=== PATIENT | female | born 1965 | race Caucasian/White ===

== ENCOUNTER 2023-01-26 18:45 | Emergency (ER) | payer OTHER, SELFPAY ==
[2023-01-26 18:47] VITALS: BP 159/72; PULSE 69; RESP 16; TEMP 36.8; O2SAT 99; BMI 22.3
--- NOTE | 2023-01-26 18:53 | PC.NURSE ---
Laceration to thumb was assessed, wrapped in gauze and coban. Bleeding controlled at this time. Pt educated on estimated wait times.
--- NOTE | 2023-01-26 20:30 | XR_ITS ---
PROCEDURE INFORMATION: Exam: XR Left Hand Exam date and time: 01/26/2023 8:28 PM Age: 58 years old Clinical indication: Injury or trauma; Other: Laceration; Finger; Left; Thumb; Additional info: Left distal thumb lac TECHNIQUE: Imaging protocol: Radiologic exam of the left hand. Views: 3 or more views. COMPARISON: No relevant prior studies available. FINDINGS: Bones/joints: No acute fracture or malalignment. Soft tissues: Soft tissue laceration of the distal thumb. No retained radiopaque foreign body. IMPRESSION: Laceration of the distal thumb without osseous involvement and no retained radiopaque foreign body.
--- NOTE | 2023-01-26 21:06 | HMH.EDGENADL ---
Discharge Plan Disposition Patient Disposition: Home, Self-Care Prescriptions Prescriptions: New cephalexin 500 mg capsule 500 mg PO Q6H 5 Days Qty: 20 0RF Referrals Follow up/Referrals: Provider,Referral, MD [Primary Care Provider] - See instructions Activity Restrictions/Add. Instructions Additional Instructions/Restrictions: Call your family doctor to establish care for this visit to the emergency department and schedule follow-up within 48 hours to ensure improvement. If you have any worsening of your condition or any other concerning signs or symptoms, return to the emergency department or your primary care doctor for further evaluation. Clinical Impressions Clinical Impression: Laceration Instructions Patient Instructions: DI for Laceration Repair Discharge ED Provider: Rolly Juarez General Adult HPI General Chief complaint: Wound/Laceration Stated complaint: AO 01/26@1830 Lac L Hand Time Seen by Provider: 01/26/23 19:49 Mode of Arrival: Ambulatory Source of Information: Patient Limitations: No Limitations Description of Symptoms (Recalled from ER Triage Doc. by RN): pt reports laceration from cardboard cutter to left thumb, bleeding controlled History of Present Illness HPI narrative: 58-year-old female with no relevant medical history presenting with laceration. Patient states that she was using a brim edge trimmer when she cut the tip of her left thumb. Last tetanus unable to be remembered. Patient sustained no other trauma. Currently having mild pain, does not radiate, associate with laceration of the distal tip of her left thumb. No nail involvement. Related Data Previous Rx's Medication Instructions Recorded cephalexin 500 mg capsule 500 mg PO Q6H 5 days #20 caps 01/26/23 Allergies Allergy/AdvReac Type Severity Reaction Status Date / Time No Known Allergies Allergy Verified 01/26/23 20:32 [facility] Disclaimer: The information contained in this section may have been updated after the patient was seen, as this information can be updated by other users. Social History Smoking Status: Current every day smoker alcohol intake: never current occupational status: employed Travel in the last 8 weeks: None ROS Obtained: Yes All systems reviewed & no additional complaints except as documented Physical Exam General General appearance: alert, in no apparent distress and other ( ) Head Head exam: atraumatic and normocephalic Eye Eye exam: Present normal appearance, PERRL and EOMI ENT ENT exam: Present mucous membranes moist Neck Neck exam: Present normal inspection, full ROM and trachea midline Respiratory Respiratory exam: Absent respiratory distress, wheezes, stridor, accessory muscle use or prolonged expiratory phase Cardiovascular Cardiovascular exam: Present regular rate and normal rhythm Abdominal Exam Abdominal exam: Present soft; Absent distention, tenderness, guarding, rebound, rigidity or normal bowel sounds Extremities Exam Extremities exam: Present other (1 cm laceration [place] along left thumb. Hemostatic without evidence of obvious bone involvement or foreign body); Absent edema Neurological Exam Neurological exam: Present alert, oriented X3, CN II-XII intact and normal gait; Absent motor sensory deficit Skin Skin exam: Present warm and dry; Absent diaphoresis or erythema Medical Decision Making Medical Records Medical records reviewed: Yes I reviewed the patient's medical records. Romain Inquiry Pt receiving controlled substance: No Romain was queried for this patient: No Vital Signs: 01/26/23 18:47 Temperature 98.3 F Temperature Source Oral Pulse Rate [Right] 69 Respiratory Rate 16 Blood Pressure [Right Arm] 159/72 H Blood Pressure Mean [Right Arm] 101 Blood Pressure Source [Right Arm] Automatic Cuff Blood Pressure Position [Right Arm] Sitting 02 Sat by Pulse Oximetry 99 Oxygen Delivery Method Room Air Orders (Tests/Meds): ED MEDICA
[2023-01-26 22:04] VITALS: BP 168/78; PULSE 62; RESP 20; TEMP 36.8; O2SAT 98
== END 2023-01-26 22:05 | disposition home or self-care (01) ==
PROVIDERS: Emergency Provider Emergency Medicine
DX: S61.012A Laceration without foreign body of left thumb without damage to nail, initial encounter (principal); W29.3XXA Contact with powered garden and outdoor hand tools and machinery, initial encounter; F17.200 Nicotine dependence, unspecified, uncomplicated; Z23 Encounter for immunization
CPT/HCPCS: 12001; 73130; 90715; 96372; 99283

== ENCOUNTER 2023-11-23 19:25 | Emergency (ER) | payer OTHER, SELFPAY ==
[2023-11-23 19:27] VITALS: BP 141/86; PULSE 78; RESP 16; TEMP 37; O2SAT 97; BMI 20.3
--- NOTE | 2023-11-23 19:33 | HMH.EDGENADL ---
Discharge Plan Disposition Patient Disposition: Home, Self-Care Chief Complaint: Ear Prescriptions Prescriptions: No Action cephalexin 500 mg capsule 500 mg PO Q6H 5 Days Qty: 20 0RF Referrals Follow up/Referrals: Provider,MD Aidee [Primary Care Provider] - See instructions Dany Watkins MD [Physician] - See instructions Activity Restrictions/Add. Instructions Additional Instructions/Restrictions: At this time it was felt you are safe to be discharged home. If new or worsening symptoms please do not hesitate to return the emergency department. Please call and schedule an appointment with ENT as soon as you are able. Clinical Impressions Clinical Impression: Right-sided tinnitus Discharge ED Provider: Jesse Thornton General Adult HPI <SANDRA Padron - Last Filed: 11/23/23 20:55> General Chief complaint: Ear Stated complaint: Ringing in ears,lightheaded,nausea Time Seen by Provider: 11/23/23 19:32 Related Data Previous Rx's Medication Instructions Recorded cephalexin 500 mg capsule 500 mg PO Q6H 5 days #20 caps 01/26/23 Allergies Allergy/AdvReac Type Severity Reaction Status Date / Time No Known Allergies Allergy Verified 01/26/23 20:32 <Jesse Thornton MD - Last Filed: 11/23/23 21:01> History of Present Illness HPI narrative: Patient is a 58-year-old female who is largely healthy with past medical history of GERD who presents emergency department for evaluation of tinnitis. She has previously had some tenderness before however this is different. It is waxing and waning, right-sided only, is not roaring rather is heard better at night and in quiet situations. No falls. No chest pain, no abdominal pain, no vision changes reported. She does feel a little bit lightheaded when she rises from seated position however has no lightheadedness while sitting at rest or after standing for a while. No vomiting. Due to persistent symptoms she presents here for continued evaluation. She did have recurrent otitis media on the right side as a child. No other acute complaints at this time. PFSH <SANDRA Padron - Last Filed: 11/23/23 20:55> [facility] Disclaimer: The information contained in this section may have been updated after the patient was seen, as this information can be updated by other users. Social History (Updated 01/26/23 @ 21:59 by Rolly Juarez MD) Smoking Status: Current every day smoker alcohol intake: never current occupational status: employed Travel in the last 8 weeks: None <Jesse Thornton MD - Last Filed: 11/23/23 21:01> ROS Obtained: Yes Systems reviewed as appropriate & no additional complaints except as documented Physical Exam <Jesse Thornton MD - Last Filed: 11/23/23 21:01> General General appearance: alert and in no apparent distress Head Head exam: atraumatic, normocephalic and other (No anterior effacement of the pinna) Eye Eye exam: Present PERRL and EOMI ENT ENT exam: Present mucous membranes moist and other (Sclerosis of the tympanic membrane on the right, cone light reflex intact, no middle ear effusion. Left TM normal.) Neck Neck exam: Present normal inspection and full ROM Chest Chest inspection: Present normal inspection and symmetric chest wall rise Respiratory Respiratory exam: Absent respiratory distress Cardiovascular Cardiovascular exam: Present regular rate and normal rhythm Abdominal Exam Abdominal exam: Present soft; Absent tenderness Extremities Exam Extremities exam: Present normal inspection Neurological Exam Neurological exam: Present alert, oriented X3, CN II-XII intact and normal gait; Absent motor sensory deficit Psychiatric Psychiatric exam: Present normal affect Skin Skin exam: Present warm and dry Medical Decision Making <SANDRA Padron - Last Filed: 11/23/23 20:55> Vital Signs: 11/23/23 19:27 Temperature 98.6 F Temperature Source Oral Pulse Rate [Left] 78 Respiratory Rate 16 Blood Pressure [Right Arm] 141/86 H Blood Pressure Mean [Right Arm] 104 Blood Pressure Source [Right Arm] Automatic Cuff Blood Pressure Position [Right Arm] Sitting 02 Sat by Pulse Oximetry 97 Oxygen Delivery Method Room Air <Jesse Thornton MD - Last Filed: 11/23/23 21:01> Romain Inquiry Pt receiving controlled substance: No Vital Signs: 11/23/23 19:27 Temperature 98.6 F Temperature Source Oral Pulse Rate [Left] 78 Respiratory Rate 16 Blood Pressure [Right Arm] 141/86 H Blood Pressure Mean [Right Arm] 104 Blood Pressure Source [Right Arm] Automatic Cuff Blood Pressure Position [Right Arm] Sitting 02 Sat by Pulse Oximetry 97 Oxygen Delivery Method Room Air Medical Decision Narrative: In summary patient is a 58-year-old female with past medical history described above who presents emergency department for right-sided tenderness. Patient is hemodynamically stable nontoxic-appearing upon arrival, afebrile. With respect to rising from seated position with transient lightheadedness I suspect this is vasovagal in nature however limited workup from that standpoint will be conducted with EKG. She has no symptoms of lightheadedness currently. With respect to her tenderness she has a nonfocal neurologic exam, is ambulatory without gait changes, no cerebellar symptoms, no nystagmus, no ongoing headache. 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 Given this workup with labs and imaging was considered but will be deferred. Patient will be referred to ENT for continued evaluation as she will certainly benefit from their evaluation and possible MRI. She was given multiple return precautions and verbalized understanding. Critical Care <Jesse Thornton MD - Last Filed: 11/23/23 21:01> Critical Care Time Critical Care Time: No
--- NOTE | 2023-11-23 21:01 | ECG_ITS ---
APPROVED REPORT Exam: Resting ECG HR:73 bpm ECG Measurements Heart Rate 73 AXES [place] 138 P 78 QRSd 84 QRS 92 QT 347 T 60 QTc 373 Conclusion SINUS RHYTHM BORDERLINE RIGHT AXIS DEVIATION [QRS AXIS > 90] BORDERLINE ECG Electronically signed by : NITO MARTINEZ, 11/23/2023 22:44:31
[2023-11-23 21:11] VITALS: BP 127/80; PULSE 84; RESP 18; TEMP 36.8; O2SAT 96
== END 2023-11-23 21:11 | disposition home or self-care (01) ==
PROVIDERS: Emergency Provider Emergency Medicine
DX: H93.11 Tinnitus, right ear (principal); R42 Dizziness and giddiness; K21.9 Gastro-esophageal reflux disease without esophagitis; F17.210 Nicotine dependence, cigarettes, uncomplicated
CPT/HCPCS: 93005; 99283

== ENCOUNTER 2023-12-23 08:47 | Outpatient (POV) | payer OTHER, SELFPAY | END 2023-12-23 23:59 | disposition home or self-care (01) | LOC: SC 08:47 | PROVIDERS: Visit Provider Specialist/Technologist | DX: Z00.00 Encounter for general adult medical examination without abnormal findings (principal) ==

== ENCOUNTER 2024-06-06 09:41 | Outpatient (CLI) | payer OTHER, SELFPAY ==
--- NOTE | 2024-06-06 | XR_ITS ---
FINAL REPORT CLINICAL HISTORY: PAIN COMPARISON: None FINDINGS: 3 views of the left elbow were obtained. There is no acute fracture or dislocation. The joint spaces are well-preserved. There is no joint effusion. There is no acute soft tissue abnormality. IMPRESSION: No acute abnormality identified. Reviewed, Interpreted and Dictated by Bryson Carreon MD Transcribed by Maddi Ewing Authenticated and [facility]
== END 2024-06-06 23:59 | disposition home or self-care (01) ==
LOC: RAD 09:44
PROVIDERS: PCP Nurse Practitioner; Visit Provider Nurse Practitioner
DX: M25.522 Pain in left elbow (principal)
CPT/HCPCS: 73080

== ENCOUNTER 2024-06-27 11:00 | Outpatient (RCR) | payer OTHER, SELFPAY ==
--- NOTE | 2024-06-13 11:30 | HMH.OTOPEV ---
OT Inpatient Evaluation Rehab OT Outpatient Eval Start: 06/13/24 11:18 Freq: Status: Active Protocol: Document 06/13/24 11:18 RMARSHALL (Rec: 06/13/24 11:30 RMARSHALL [id number]) E-signed By Chemo England, OT Outpatient Therapy Subjective History Subjective History Pt is a 59 year old female who reports to therapy for initial evaluation to left elbow. Pt reports she has been having pain, numbness, and tingling on the medial aspect of left elbow down into the ring and small finger of left hand. Pt is left hand dominant. 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 She does not recall a specific injury causing her pain to begin. Pt's AROM at left elbow is within functional limits, but her strength is slightly declined. Pt's left hand global compensation manager strength is also declined. Pt will continue to be seen weekly in order to address left elbow deficits. STG L hand global compensation manager strength: 30 lbs LTG L hand global compensation manager strength: 45 lbs New diagnosis of cancer in past 12 No months? Chief Complaint Pain,Stiff,Paresthesia, Weakness,Decreased Sleeve Tailor Strength Symptom Type Ache,Sharp,Burning,Numbness, Tingling Symptoms Relieved By Rest/Positioning Symptoms Aggravated By Physical Activity,Twisting, Lifting Prior Functional Limitations None Current Functional Limitations Reaching,Lifting,Housework, Dressing,Sleeping,Recreation Activity Symptom Description Constant but Variable Level of pain today (0-10) 3 Pain scale - at its best (0-10) 3 Pain scale - at its worst (0-10) 10 Shoulder/Elbow Eval Shoulder Objective Measurements Elbow Objective Measurements Elbow ROM Left Elbow Extension Active Range of Motion ( 0 degrees degrees) Elbow Flexion Active Range of Motion ( 138 degrees degrees) Elbow Pronation of Forearm Range of 90 degrees Motion (degrees) Elbow Supination of Forearm Range of 85 degrees Motion (degrees) Elbow MMT Elbow Flexion Strength Grade 4- Good- Elbow Extension Strength Grade 4- Good- Supination Strength Grade 4- Good- Pronation Strength Grade 4- Good- Wrist/Hand Eval Sleeve Tailor/Pinch Strength Right Sleeve Tailor Strength Measurement (lbs) 55 Left Sleeve Tailor Strength Measurement (lbs) 18 QuickDASH Activities Please rate your ability to do the following activities in the last week by selecting the number below the appropriate response. 1. Open a tight or new jar. Moderate difficulty 2. Do heavy consumer relations complaint clerk (e.g., wash Moderate difficulty [place], floors). 3. Carry a shopping bag or briefcase. Moderate difficulty 4. Wash your back. Moderate difficulty 5. Use a knife to cut food. Moderate difficulty 6. Recreational activities in which you Moderate difficulty take some force or impact through your arm, shoulder, or hand (e.g., golf, hammering, tennis, etc.). 7. During the past week, to what extent Quite a bit has your arm, shoulder or hand problem interfered with your normal social activities with family, friends, neighbors or groups? 8. During the past week, were you Very limited limited in your work or other regular daily activites as a result of your arm, shoulder or hand problem? 9. Arm, shoulder or hand pain. Moderate 10. Tingling (pins and needles) in your Moderate arm, shoulder or hand. 11. During the past week, how much Moderate difficulty difficulty have you had sleeping because of the pain in your arm, shoulder or hand? Quick DASH 35 OT Outpatient Assessment Impairments Problems/Impairments Palpation Tenderness,Impaired Range of Motion,Impaired Strength,Impaired Endurance, Impaired Lifting,Impaired Household Care,Impaired Work Activities,Subjective C/O Pain Prognosis Rehab Potential Good Clinical Impression Consistent with Diagnosis Yes Short Term Goals Number of Weeks 3 Increase Strength Yes: 4/5 throughout left elbow Increase Endurance Yes: Pt will tolerate L elbow exercises for ~15 min prior to rest. Decrease Subjective C/O Pain Yes: 6/10 at worst Patient to be Ind w/ HEP Yes: AAROM stretches at elbow, yellow theraputty, and ulnar nerve glides Improve Quick Dash Score Yes: Acitivities: 30 or below Visual Educator Goals Number of Weeks 6 Increase Strength Yes: 5/5 throughout left elbow Increase Endurance Yes: Pt will tolerate L elbow exercises for ~20 min prior to rest. Decrease Subjective C/O Pain Yes: 3/10 at worst Patient to be Ind w/ Advanced HEP Yes: Advanced strengthening Improve Quick Dash Score Yes: Activities: 25 or below Outpatient Therapy Plan of Care Treatment Plan May Include Therapeutic Exercise Including Home Yes Exercise Program Manual Therapy Techniques Yes Neuromuscular Re-education Yes Therapeutic Activities to Return to Yes Previous Functional/Work Level ADL/Self Care Education Yes Thermal Modalities Yes Electrical Stimulation Yes Ultrasound/Phonophoresis Yes Iontophoresis Yes Parrafin Yes Orthotics/Bracing/Splinting Yes Massage Yes Eval/Re-Eval Yes Frequency Times per week 2 Duration Number of Weeks 6 Addendums This patient is a candidate for social No or vocational rehab? Patient/Guardian verbally acknowledges Yes understanding of treatment program and consents to further treatment? Patient/Guardian verbally acknowledges Yes understanding of diagnosis, prognosis and goals for treatment? Eval Complexity OT Charge 26871 - Moderate Complexity PHYSICIAN CERTIFICATION: I certify the specified therapy services for Sophie Smith are required, authorized, and reviewed every 30 days.
== END 2024-06-27 23:59 | disposition home or self-care (01) ==
LOC: OT 11:00
PROVIDERS: Visit Provider Nurse Practitioner
DX: M25.522 Pain in left elbow (principal)
CPT/HCPCS: 97014; 97035; 97140; 97166; G0283

== ENCOUNTER 2024-07-17 09:22 | Emergency (ER) | payer OTHER, SELFPAY ==
[2024-07-17 09:31] VITALS: BP 150/72; PULSE 75; RESP 16; TEMP 36.8; O2SAT 95; BMI 21.2
--- NOTE | 2024-07-17 09:40 | XR_ITS ---
PROCEDURE INFORMATION: Exam: XR Right Wrist Exam date and time: 07/17/2024 9:58 AM Age: 59 years old Clinical indication: Injury or trauma; Fall; Blunt trauma (contusions or hematomas); Wrist; Right; Additional info: Trauma - right wrist TECHNIQUE: Imaging protocol: Radiologic exam of the right wrist. Views: 3 or more views. COMPARISON: No relevant prior studies available. FINDINGS: Bones/joints: Mild cortical irregularity along the lateral margin scaphoid bone. Fracture can not be excluded. Distal radius and ulna intact. Soft tissues: Normal. IMPRESSION: Mild cortical irregularity along the lateral margin scaphoid bone. Fracture can not be excluded. Correlation with patient pain necessary.
[2024-07-17] MEDS: IBUPROFEN 800 MG TABLET PO (09:44)
--- NOTE | 2024-07-17 09:45 | PC.NURSE ---
Ice pack provided. Patient medicated as documented. Voices no questions or concerns at this time.
[2024-07-17 10:47] VITALS: BP 133/71; PULSE 64; RESP 18; O2SAT 100
--- NOTE | 2024-07-17 11:07 | PC.NURSE ---
dr payne at bedside
[2024-07-17 11:18] VITALS: BP 130/88; PULSE 79; RESP 18; TEMP 36.8; O2SAT 98
--- NOTE | 2024-07-17 11:23 | HMH.EDGENADL ---
Discharge Plan Disposition Patient Disposition: Home, Self-Care Condition: Good Prescriptions Prescriptions: No Action omeprazole 40 mg capsule,delayed release(DR/EC) 40 mg PO DAILY Referrals Follow up/Referrals: Bruce Calloway DO [Staff Physician] - See instructions Bernice Johnson APRN [Primary Care Provider] - See instructions Activity Restrictions/Add. Instructions Additional Instructions/Restrictions: You were evaluated in the emergency department today. Please keep your splint on. Keep it clean and dry. You may take it off to shower but please replace it right away afterward. Follow-up closely with orthopedics. Call Dr. Calloway's office to schedule an appointment. Take Tylenol and ibuprofen as needed for pain. Keep your hand elevated and ice to help reduce pain and swelling. Return to the emergency department for new or worsening symptoms. Clinical Impressions Clinical Impression: Fracture of scaphoid bone Stand Alone Forms Stand Alone Forms: Work/School Release Instructions Patient Instructions: DI for Wrist Fracture, DI for Wrist Strain Print Language Print Language: Azeri Discharge ED Provider: Ani Briseno General Adult HPI General Chief complaint: Extremity Injury, Upper Stated complaint: AO 07/16 r wrist pain swelling Time Seen by Provider: 07/17/24 10:49 Mode of Arrival: Ambulatory Source of Information: Patient Description of Symptoms (Recalled from ER Triage Doc. by RN): Patient presents ambulatory to triage. Patient states she sustained a mechanical fall from standing yesterday. States she was skating when she fell and landed on her right wrist. Denies feeling or hearing a pop. Abner bandage in place in triage. States she iced it, wrapped it in an abner bandage, and has been taking Ibuprofen. States her last dose of Ibuprofen was at 0000 and she took 400mg. History of Present Illness HPI narrative: This patient is a 59-year-old female who denies significant past medical history presenting to the emergency department for evaluation concern for right wrist injury. Patient states that she was skating when she fell, she is not sure how she landed. This happened yesterday. She injured her right wrist but denies any other injuries. No numbness, tingling, or other concerns. She does not take blood thinners. Related Data Home Medications ?Medication ?Instructions ?Recorded ?Confirmed omeprazole 40 mg capsule,delayed 40 mg PO DAILY 12/02/23 07/17/24 release Allergies Allergy/AdvReac Type Severity Reaction Status Date / Time Penicillins Allergy Mild Unknown Verified 07/17/24 09:39 allergy reaction [facility] Disclaimer: The information contained in this section may have been updated after the patient was seen, as this information can be updated by other users. Medical History History of hiatal hernia ETD (eustachian tube dysfunction) Tinnitus Bilateral serous otitis media Disorder of both eustachian tubes GERD (gastroesophageal reflux disease) Surgical History History of repair of hiatal hernia History of carpal tunnel surgery History of 2 sections Social History Smoking Status: Current every day smoker tobacco type: cigarettes packs per day: 1 alcohol intake: never current occupational status: employed Travel in the last 8 weeks: None Have you lived/traveled outside [place] in past 30 days?: No Contact w/someone who lives/traveled outside [place] past 30 days?: No Exposure to someone with infectious disease in past 14 days?: No Do you have a fever (greater than 100.4 F or 38 C)?: No Have you tested positive for COVID-19: No Exposed to someone with COVID-19 in past 14 days?: No Do you have a sore throat?: No Do you have a cough?: No Do you have any weakness?: No Do you have any diarrhea?: No Are you experiencing any unusual bleeding?: No Do you have any muscle aches/pain?: No Do you have any abdominal pain?: No Are you experiencing loss of taste or smell?: No Other Medical History Have you received the Pneumonia Vaccine: No ROS Obtained: Yes All systems reviewed & no additional complaints except as documented Physical Exam General General appearance: alert and in no apparent distress Head Head exam: atraumatic and normocephalic Eye Eye exam: Present normal appearance, PERRL and EOMI ENT ENT exam: Present normal exam, normal oropharynx, mucous membranes moist and normal external ear exam Neck Neck exam: Present normal inspection, full ROM and trachea midline; Absent tenderness Chest Chest inspection: Present normal inspection and symmetric chest wall rise; Absent tenderness Respiratory Respiratory exam: Present normal lung sounds bilaterally; Absent respiratory distress, wheezes, stridor or accessory muscle use Cardiovascular Cardiovascular exam: Present regular rate and normal rhythm Abdominal Exam Abdominal exam: Present soft; Absent distention, tenderness or guarding Extremities Exam Extremities exam: Present tenderness, normal capillary refill and other (Tenderness to palpation of the right anatomic snuffbox and first MC. All compartments soft, neurovascularly intact distally. No open wound); Absent edema Back Exam Back exam: Present normal inspection and full ROM; Absent tenderness Neurological Exam Neurological exam: Present alert, oriented X3, CN II-XII intact and normal gait; Absent motor sensory deficit Psychiatric Psychiatric exam: Present normal affect and normal mood Skin Skin exam: Present warm and dry Medical Decision Making Medical Records Medical records reviewed: Yes I reviewed the patient's medical records. Screening: Per USPSTF and CDC recommendations, given the prevalence of disease in our region, it is our hospital?s policy to screen for HIV and viral Hepatitis for all patients aged 18 and over and those with ongoing risk factors. Romain Inquiry Pt receiving controlled substance: No Vital Signs: 07/17/24 09:31 07/17/24 10:47 07/17/24 11:18 Temperature 98.3 F 98.3 F Temperature Source Oral Oral Pulse Rate 64 79 Pulse Rate [Radial] 75 Respiratory Rate 16 18 18 Blood Pressure 133/71 130/88 Blood Pressure [Left Arm] 150/72 H Blood Pressure Mean [Left Arm] 98 Blood Pressure Source [Left Arm] Automatic Cuff Blood Pressure Position [Left Arm] Sitting 02 Sat by Pulse Oximetry 95 100 Oxygen Delivery Method Room Air Room Air Room Air Lab Data Lab results reviewed: Yes I reviewed the patient's lab results. Orders (Tests/Meds): ED MEDICATIONS Discontinued Medications Generic Name Dose Route Start Last Admin Trade Name Freq PRN Reason Stop Dose Admin Ibuprofen 800 mg 07/17/24 09:41 07/17/24 09:44 Ibuprofen 800 Mg Tablet PO 07/17/24 09:42 800 mg ONCE ONE Administration ORDERS Category Date Time Status XR wrist RT min 3V Stat Exams 07/17/24 09:40 Completed Medical Decision Narrative: In summary, this patient is a 59-year-old female presenting to the Emergency Department for evaluation of right hand/wrist injury. Differential diagnoses considered include but are not limited to fracture, contusion, strain/sprain, neurovascular injury. Ruling out the most morbid conditions drove assessment. On exam, the patient is well-appearing. She has tenderness palpation of her right anatomic snuffbox and first metacarpal but denies any other concerns or complaints. Workup included x-rays of the right wrist. I independently interpreted x-ray prior to the radiologist read and noted possible scaphoid lucency. Please see their read for final interpretation. At this time, feel patient is appropriate for discharge home with thumb spica splint that is prefabricated on the right upper extremity. She is given instructions for use as well as instructions for supportive management and close follow-up with orthopedics. Strict return precautions given. Procedures Risk/Benefits of Procedure(s) Were Explained: Yes Orthopedic Splinting/Casting Injury #1: Side: right Upper Extremity Injury Location: wrist Upper Extremity Immobilizer: thumb spica (Prefabricated) and applied by nurse/dr jaime Post Cast/Splinting Neuro Status: intact and no change Post Cast/Splinting Vasc Status: intact and no change Critical Care Critical Care Time Critical Care Time: No
== END 2024-07-17 11:22 | disposition home or self-care (01) ==
PROVIDERS: Emergency Provider Emergency Medicine; PCP Nurse Practitioner
DX: S62.001A Unspecified fracture of navicular [scaphoid] bone of right wrist, initial encounter for closed fracture (principal); M25.531 Pain in right wrist; W18.39XA Other fall on same level, initial encounter; Y93.89 Activity, other specified
CPT/HCPCS: 73110; 99283

== ENCOUNTER 2024-08-05 11:00 | Outpatient (RCR) | payer OTHER, SELFPAY | END 2024-08-05 23:59 | disposition home or self-care (01) | LOC: OT 11:00 | PROVIDERS: Visit Provider Nurse Practitioner | DX: M25.522 Pain in left elbow (principal) | CPT/HCPCS: 97014; 97035; 97110; 97140; 97168; G0283 ==

== ENCOUNTER 2024-08-05 13:55 | Outpatient (CLI) | payer OTHER, SELFPAY ==
--- NOTE | 2024-08-05 14:45 | CT_ITS ---
FINAL REPORT CLINICAL HISTORY: Right wrist pain after a fall 2 weeks ago FINDINGS: CT RIGHT WRIST WITHOUT CONTRAST TECHNIQUE: Axial and reformatted sagittal and coronal images were obtained of the right wrist. This study was performed with techniques to keep radiation doses as low as reasonably achievable, (ALARA). Individualized dose reduction techniques using automated exposure control or adjustment of mA and/or kV according to the patient's size were employed. FINDINGS: There is no sick thickened positive or negative ulnar variation. The scapholunate joint space measures at the upper limits of allowable. The carpal scaphoid is intact. There is no definite fracture of the carpal bones. Musculature is intact. There is no soft tissue mass. IMPRESSION: No definite fracture identified. Scapholunate joint space is at the upper limits of normal. Consider MRI to better assess marrow edema or ligamentous disruption. Reviewed, Interpreted and Dictated by Bryson Carreon MD Transcribed by aHnnah Ramesh Authenticated and [facility]
== END 2024-08-05 23:59 | disposition home or self-care (01) ==
LOC: RAD 13:56
PROVIDERS: PCP Nurse Practitioner; Visit Provider Physician Assistant
DX: M25.531 Pain in right wrist (principal); S62.009A Unspecified fracture of navicular [scaphoid] bone of unspecified wrist, initial encounter for closed fracture
CPT/HCPCS: 73200

== ENCOUNTER 2024-11-04 10:00 | Outpatient (RCR) | payer OTHER, SELFPAY | END 2024-11-04 23:59 | disposition home or self-care (01) | LOC: OT 10:00 | PROVIDERS: Visit Provider Nurse Practitioner | DX: M25.519 Pain in unspecified shoulder (principal) | CPT/HCPCS: 97014; 97110; 97140; 97166; G0283 ==